=== PATIENT | male | born 1955 | race Caucasian/White ===

== ENCOUNTER 2019-08-10 14:25 | Emergency (ER) | payer OTHER ==
[~2019-08-10] VITALS: Ht 157.5 cm; Wt 79.4 kg
[2019-08-10 14:37] VITALS: BP 132/59
--- NOTE | 2019-08-10 15:17 | NUR ---
PATIENT AMBULATED TO BED 7 AT THIS TIME.
--- NOTE | 2019-08-10 15:30 | NUR ---
Dr. Gorman evaluating pt at bedside
--- NOTE | 2019-08-10 15:33 | NUR ---
64M BIB DAUGHTER S/P MECH TRIP AND FALL. NO LOC, C/O ABRASIONS TO RT HAND AND FACE, LEFT ELBOW PAIN. PT HAS LIDOCAIN PATCH TO LEFT ELBOW. NO ACTIVE BLEEDING. PT IS ON ANTICOAGULANTS PER DAUGHTER. PT AMBULATORY, AWAKE AND ALERT. ABLE TO FOLLOW ALL COMMANDS APPROPRIATELY. ABRASIONS NOTED TO NOSE BRIDGE, LT FOREHEAD, RIGHT HAND. NO ACTIVE BLEEDING. THE MOST PAIN AT LEFT ELBOW NOW. ABLE TO PERFORM ROM BUT LIMITED D/T PAIN. PMH HEMODIALYSIS, CKD, HTN, DM
[2019-08-10] MEDS ORDERED: ACETAMINOPHEN EXTRA STRENGTH 500 MG TAB PO ONE (16:25)
--- NOTE | 2019-08-10 16:28 | NUR ---
XRAY AY BEDSIDE
--- NOTE | 2019-08-10 16:54 | NUR ---
Nasim al in [facility] - 08/10/19 at 1656 by JOANNA Patient taken for CT via wheelchair.
--- NOTE | 2019-08-10 16:55 | NUR ---
LAB AT BEDSIDE.
--- NOTE | 2019-08-10 18:01 | NUR ---
DR. DE LA PAZ SPEAKING WITH PATIENT AT BEDSIDE.
--- NOTE | 2019-08-10 18:39 | NUR ---
APPLIED ULNAR GUTTER SPLINT TO RIGHT ARM WITHOUT ANY ISSUES
--- NOTE | 2019-08-10 18:44 | NUR ---
Patient discharged with v/s stable. Written and verbal after care instructions given and explained. Patient alert, oriented and verbalized understanding of instructions. DAUGHTER VERBALIZED UNDERSTANDING. Ambulatory with steady gait. All questions addressed prior to discharge. ID band removed. Patient advised to follow up with PMD. Rx of NORCO given. Patient educated on indication of medication including possible reaction and side effects. Opportunity to ask questions provided and answered.
[2019-08-10 18:45] VITALS: BP 124/57
== END 2019-08-10 18:44 | disposition home or self-care (01) ==
LOC: MED 14:25
DX: S62.346A Nondisplaced fracture of base of fifth metacarpal bone, right hand, initial encounter for closed fracture (principal); S50.02XA Contusion of left elbow, initial encounter; S00.31XA Abrasion of nose, initial encounter; E11.22 Type 2 diabetes mellitus with diabetic chronic kidney disease; I12.0 Hypertensive chronic kidney disease with stage 5 chronic kidney disease or end stage renal disease; N18.6 End stage renal disease; Z99.2 Dependence on renal dialysis; W18.09XA Striking against other object with subsequent fall, initial encounter; Y93.89 Activity, other specified; Y92.89 Other specified places as the place of occurrence of the external cause; Y99.8 Other external cause status
CPT/HCPCS: 29105; 70450; 73080; 73130; 99284; Q0092

== ENCOUNTER 2023-01-12 09:55 | Emergency (ER) | payer OTHER ==
[~2023-01-12] VITALS: Ht 154.9 cm; Wt 90.7 kg
[2023-01-12 10:00] VITALS: BP 180/75
[2023-01-12] MEDS ORDERED: ALBUTEROL SULFATE/IPRATROPIU 3 ML SOL IH ONE (11:10)
[2023-01-12] MEDS ORDERED: predniSONE 20 MG TAB PO ONE (11:20)
[2023-01-12] MEDS ORDERED: PROM118S5 PO (11:36)
[2023-01-12] MEDS ORDERED: SUD30 PO (11:36)
[2023-01-12] MEDS ORDERED: ALBU0.0912 IH (11:36)
[2023-01-12] MEDS ORDERED: PRED20TA5 PO (11:36)
--- NOTE | 2023-01-12 12:35 | NUR ---
Patient discharged with v/s stable. Written and verbal after care instructions given and explained. Patient alert, oriented and verbalized understanding of instructions. Ambulatory with steady gait. All questions addressed prior to discharge. ID band removed. Patient advised to follow up with PMD. Rx of PRENISONE given. Patient educated on indication of medication including possible reaction and side effects. Opportunity to ask questions provided and answered.
== END 2023-01-12 12:32 | disposition home or self-care (01) ==
LOC: MED 09:55
DX: J06.9 Acute upper respiratory infection, unspecified (principal); Z20.822 Contact with and (suspected) exposure to COVID-19; I10 Essential (primary) hypertension; E11.9 Type 2 diabetes mellitus without complications; Z94.0 Kidney transplant status; Z79.4 Long term (current) use of insulin; Z79.899 Other long term (current) drug therapy; Z90.49 Acquired absence of other specified parts of digestive tract; Z98.890 Other specified postprocedural states
CPT/HCPCS: 71046; 87426; 87804; 94640; 94760; 99284; J7512; Q0092